=== PATIENT | male | born 1965 | race Caucasian/White ===

== ENCOUNTER 2016-12-04 23:01 | Emergency (ER) | payer BC | END 2016-12-04 23:30 | disposition home or self-care (01) | LOC: ER 23:01 | DX: S20.212A Contusion of left front wall of thorax, initial encounter (principal); F17.200 Nicotine dependence, unspecified, uncomplicated; W19.XXXA Unspecified fall, initial encounter | CPT/HCPCS: 71010; 71100-LT; 96372; 99283; A9270-GY; J2800 ==